=== PATIENT | female | born 1955 | race Two or more races ===

== ENCOUNTER 2018-05-07 09:35 | Day surgery (SDC) | payer OTHER ==
[2018-05-06 14:30] VITALS: BMI 28.9
--- NOTE | 2018-05-07 10:19 | PROC ---
Endoscopy Procedure Endoscopy procedure completed. Please see scanned procedure report.
[2018-05-07 11:40] VITALS: TEMP 97.9
[2018-05-07 13:32] VITALS: BP 130/80; PULSE 90
--- NOTE | 2018-05-08 11:03 | PATH ---
Surgical Pathology Report Patient Name: MARGARITA ESTRADA [facility]. Rec. #: [id number] /Age/Gender: 1955 (Age: 62) / F Account: [id number] Location: [facility]-ENDOSCOPY Taken: 05/07/2018 Received: 05/07/2018 Reported: 05/08/2018 Physicians: Jeremias Dyer M.D. Specimen(s) Received A: BX 2ND PORTION DUODENUM B: BX ANTRUM AND BODY C: BX ESOPHAGUS Clinical History GERD, colon screening Postoperative diagnosis: Esophagitis, diverticulosis Final Diagnosis A. DUODENUM, SECOND PORTION, BIOPSY: DUODENAL MUCOSA WITH NO PATHOLOGIC CHANGES. NO HISTOLOGIC EVIDENCE OF GLUTEN SENSITIVE ENTEROPATHY (CELIAC SPRUE) IDENTIFIED. B. STOMACH, ANTRUM AND BODY, BIOPSY: GASTRIC ANTRAL AND FUNDIC MUCOSA WITH MILD CHRONIC GASTRITIS. IMMUNOSTAIN FOR H. PYLORI IS NEGATIVE. C. ESOPHAGUS, BIOPSY: SQUAMOUS MUCOSA WITH PAPILLOMATOSIS SUGGESTIVE OF REFLUX ESOPHAGITIS, AND GASTRIC TYPE MUCOSA WITH MILD CHRONIC INFLAMMATION. NO INTESTINAL METAPLASIA IDENTIFIED (NO DOMINGO'S IDENTIFIED). Electronically Signed Jacob Hawley M.D. Gross Description A. Received in formalin, labeled "biopsy second portion of duodenum" are 2 garcia, irregular portions of soft tissue measuring 0.3 and 0.4 cm. in greatest dimension. The specimens are submitted in toto in one cassette. B. Received in formalin, labeled "antrum and body" are 2 garcia, irregular portions of soft tissue averaging 0.3 cm. in greatest dimension. The specimens are submitted in toto in one cassette. C. Received in formalin, labeled "biopsy esophagus" are 3 garcia, irregular portions of soft tissue ranging from 0.2-0.5 cm. in greatest dimension. The specimens are submitted in toto in one cassette. DL/05/07/2018 saudi05/07/2018
== END 2018-05-07 12:30 | disposition home or self-care (01) ==
LOC: JASU-ENDO 09:35
PROVIDERS: ATTEND Internal Medicine Gastroenterology
PROC: 0DB68ZX Excision of Stomach, Via Natural or Artificial Opening Endoscopic, Diagnostic (ICD-10-PCS; 2018-05-07)
PROC: 0DB48ZX Excision of Esophagogastric Junction, Via Natural or Artificial Opening Endoscopic, Diagnostic (ICD-10-PCS; 2018-05-07)
PROC: 0DB98ZX Excision of Duodenum, Via Natural or Artificial Opening Endoscopic, Diagnostic (ICD-10-PCS; principal; 2018-05-07 10:30)
DX: K29.50 Unspecified chronic gastritis without bleeding (principal); K20.9 Esophagitis, unspecified; E78.5 Hyperlipidemia, unspecified
CPT/HCPCS: 88305-TC; 88342-TC